=== PATIENT | female | born 1995 | race Caucasian/White ===

== ENCOUNTER 2016-10-22 20:00 | Emergency (ER) | payer MEDICAID ==
--- NOTE | 2016-10-22 21:02 | EDM.PDOC ---
ED HISTORY OF PRESENT ILLNESS - General Chief Complaint: Respiratory Problem Stated Complaint: SOB Time Seen by Provider: 10/22/16 20:22 Source of Information: Reports: Patient, RN notes reviewed - History of Present Illness INITIAL COMMENTS - FREE TEXT/NARRATIVE: Renal female comes in with cough sore throat difficulty breathing. She does have history of asthma. She has used an inhaler in the past but does not currently have an inhaler to use. Her cough is mostly dry and nonproductive. Yesterday and today she also has been developing worsening sore throat. She's had some chills but no fever. She does feel some chest discomfort with the coughing and also with deep breathing. - Related Data Allergies/ADRs: Allergies Allergy/AdvReac Type Severity Reaction Status Date / Time No Known Allergies Allergy Verified 10/22/16 20:16 Home Meds: Home Meds . [No Known Home Meds] 10/22/16 [History] Past Medical History Respiratory History: Reports: Asthma Social & Family History - Tobacco Use Smoking Status *Q: Never Smoker ED ROS GENERAL - Review of Systems Review Of Systems: See Below Constitutional: Reports: chills. Denies: fever HEENT: Reports: Throat pain Respiratory: Reports: Shortness of Breath, Wheezing, Cough. Denies: Sputum Cardiovascular: Reports: Chest pain (With coughing and deep breathing) GI/Abdominal: Denies: Abdominal pain, Nausea, Vomiting Musculoskeletal: Reports: no symptoms Skin: Reports: no symptoms Neurological: Reports: No Symptoms ED EXAM, GENERAL - Physical Exam Exam: See Below General Appearance: alert, mild distress Eye Exam: bilateral eye: PERRL Throat/Mouth: Inflammation (Pharynx is very mildly inflamed, no exudate) Head: No: facial swelling Neck: supple, full range of motion. No: lymphadenopathy (L), lymphadenopathy (R ) Respiratory/Chest: no respiratory distress, lungs clear, wheezing (Very mild bilateral, moving air quite well) Cardiovascular: regular rate, rhythm GI/Abdominal: soft, non tender Extremities: normal inspection, normal range of motion. No: pedal edema Neurological: alert, no motor/sensory deficits Skin Exam: Warm, Dry, Normal color Course - Vital Signs Last Recorded V/S: Last Vital Signs Temp 97.3 F 10/22/16 20:17 Pulse 84 10/22/16 20:17 Resp 18 10/22/16 20:17 BP 121/74 10/22/16 20:17 Pulse Ox 100 10/22/16 20:17 Departure - Departure Time of Disposition: 21:15 Disposition: Home, Self-Care 01 Clinical Impression: Exacerbation of asthma, Bronchitis Instructions: Asthma, Adult, [id number], Acute Bronchitis Referrals: PCP,None [Primary Care Provider] - Forms: ED Department Discharge Additional Instructions: albuterol inhaler q 6 hr as needed for wheezing, zpack antibiotic as prescribed , follow up clinic if not much better within 5 to 7 days as expected
== END 2016-10-22 21:08 | disposition home or self-care (01) ==
LOC: JD.ED 20:00
DX: J45.901 Unspecified asthma with (acute) exacerbation (principal)
CPT/HCPCS: 99283